=== PATIENT | female | born 1965 | race Caucasian/White ===

== ENCOUNTER 2017-08-16 15:55 | Emergency (ER) | payer OTHER ==
[~2017-08-16] VITALS: Ht 162.6 cm; Wt 70.6 kg
[~2017-08-16 15:55] MED LIST: CLEOCIN300 MG PO; FLONASE16 G1 BOTH NARES; IBUPROFEN800 MG PO; MUCINEX D ER T1 EACH PO; PERCOCET 5/31 TABLET PO; SKELAXIN800 MG PO; XANAX0.25 MG PO
[2017-08-16] MEDS ORDERED: TESSALON PERLE100 MG PO (17:47)
[2017-08-16] MEDS ORDERED: MOTRIN800 MG PO (17:47)
[2017-08-16 17:51] VITALS: BP 145/74
== END 2017-08-16 17:54 | disposition home or self-care (01) ==
LOC: EME 15:55
PROVIDERS: Nurse Practitioner Family
DX: J02.9 Acute pharyngitis, unspecified (principal); R05 Cough; R07.89 Other chest pain; R09.89 Other specified symptoms and signs involving the circulatory and respiratory systems; J34.89 Other specified disorders of nose and nasal sinuses; R51 Headache; F17.200 Nicotine dependence, unspecified, uncomplicated
CPT/HCPCS: 87502; 99281; 99283